=== PATIENT | male | born 1960 ===

== ENCOUNTER 2021-11-18 16:15 | Emergency (ER) | payer BC ==
[~2021-11-18] VITALS: Ht 180.3 cm; Wt 90.9 kg
[2021-11-18 16:22] VITALS: TEMP 97.9
[2021-11-18 18:05] LABS: BASO % 0.2 % (0.0-2.0); EOS % 0.2 % (0.0-4.0); GRAN # 6.7 K/mm3 (1.4-6.5); GRAN % 80.8 % (42.2-75.2); HEMOGLOBIN 12.3 g/dl (13.5-18.0); LYMPH # 0.7 K/mm3 (1.2-3.4); MEAN CELL VOLUME 96 fl (80.0-100.0); MEAN CORPUSCULAR HEMOGLOBIN 34 pg (27-31); MEAN CORPUSCULAR HGB CONC 36 g/dl (33.0-37.0); MEAN PLATELET VOLUME 9.8 fl (7.4-10.4); MONO # 0.8 K/mm3 (0.1-0.6); MONO % 9.2 % (1.7-9.3); PLATELET COUNT 224 K/mm3 (130-400); RED BLOOD COUNT 3.59 M/mm3 (4.20-5.60)
[2021-11-18 18:07] LABS: HEMATOCRIT 34.4 % (42.0-52.0)
[2021-11-18] MEDS ORDERED: PRAVACHOL 40MG40 MG PO (18:07)
[2021-11-18] MEDS ORDERED: NORVASC 10MG10 MG PO (18:07)
[2021-11-18] MEDS ORDERED: GLUCOPHAGE500 MG/TAB PO (18:08)
[2021-11-18] MEDS ORDERED: GLUCOTROL XL5 MG/TAB PO (18:08)
[2021-11-18] MEDS ORDERED: PRINIVIL20 MG PO (18:08)
[2021-11-18 18:20] LABS: ALBUMIN 3.8 gm/dL (3.4-4.8); CALCIUM 8.3 mg/dL (8.4-10.2); CREATININE, serum 0.85 mg/dL (0.72-1.25); MAGNESIUM 1.2 mg/dL (1.6-2.6); POTASSIUM 5.3 mmol/L (3.5-4.5); TOTAL PROTEIN 6.9 gm/dL (6.2-8.1)
[2021-11-18 20:24] LABS: COLLECTION METHOD CLEAN CATCH
[2021-11-18 20:30] LABS: MUCOUS Present (NOT PRESENT); PH 5 (5-8); SQUAMOUS EPITHELIAL 0-2 /hpf (0-10); URINE APPEARANCE Clear (CLEAR/HAZY); URINE BACTERIA None Seen /hpf (NONE SEEN); URINE BILIRUBIN Negative (NEGATIVE); URINE BLOOD Negative (NEGATIVE); URINE COLOR Straw (YELLOW); URINE GLUCOSE 3+ (NEGATIVE); URINE KETONE Trace (NEGATIVE); URINE LEUKOCYTE ESTERASE Negative (NEGATIVE); URINE NITRATE Negative (NEGATIVE); URINE PROTEIN(semi-quant) Negative (NEGATIVE); URINE RBC 0-2 /hpf (0-2); URINE UROBILINOGEN Negative (NEGATIVE)
[2021-11-19 00:01] VITALS: BP 161/103; PULSE 109
== END 2021-11-19 00:05 | disposition other institution (70) ==
LOC: COL.ER 16:15 → SURG 17:45
PROVIDERS: Student in an Organized Health Care Education/Training Program
DX: S43.004A Unspecified dislocation of right shoulder joint, initial encounter (principal); S42.201A Unspecified fracture of upper end of right humerus, initial encounter for closed fracture; Z28.310 Unvaccinated for COVID-19; W10.9XXA Fall (on) (from) unspecified stairs and steps, initial encounter
CPT/HCPCS: J2270; J3010; J3475; J7030

== ENCOUNTER 2022-09-28 13:50 | Emergency (ER) | payer BC ==
[~2022-09-28] VITALS: Ht 180.3 cm; Wt 90.9 kg
[~2022-09-28 13:50] MED LIST: GLUCOPHAGE500 MG/TAB PO; GLUCOTROL XL5 MG/TAB PO; NORCO 325 MG-51 TAB PO; NORVASC 10MG10 MG PO; PRAVACHOL 40MG40 MG PO; PRINIVIL20 MG PO
[2022-09-28 14:01] VITALS: TEMP 98.6
[2022-09-28 15:18] VITALS: BP 166/96; PULSE 90
[2022-09-28] MEDS ORDERED: CLEOCIN HC150 MG/CAP PO (15:21)
== END 2022-09-28 15:25 | disposition home or self-care (01) ==
LOC: COL.ER 13:50
DX: L03.012 Cellulitis of left finger (principal)